=== PATIENT | female | born 1965 | race Caucasian/White ===

== ENCOUNTER 2019-08-19 06:47 | Observation (INO) ==
--- NOTE | 2019-08-06 12:11 | Anesthesiology Consultation ---
Date of Service August 06, 2019 Assessment & Plan (1) Encounter for pre-operative examination: Chart Review Chart Review: Acceptable Risk for Surgery and Patient NOT seen in Pre Admission Testing Consults Requested none History Surgery Operation Date: 08/19/19 08:00 Proposed Procedures p PVC Ablation w/Mapping w/Anesthesia - Katiana Garduno DO Height/Weight Height: 5 ft 5 in Weight: 90.718 kg Allergies Allergy/AdvReac Type Severity Reaction Status Date / Time lisinopril AdvReac Mild Cough Verified 08/04/19 11:25 Medications Home Medications Medication Instructions Recorded Confirmed Last Taken atorvastatin 10 mg PO HS 08/04/19 08/04/19 Unknown dulaglutide [Trulicity] 1.5 mg SUBCUT WK 08/04/19 08/04/19 Unknown gabapentin 100 mg PO HS 08/04/19 08/04/19 Unknown imipramine HCl 50 mg PO HS 08/04/19 08/04/19 Unknown levothyroxine 50 mcg PO QAM 08/04/19 08/04/19 Unknown losartan 25 mg PO HS 08/04/19 08/04/19 Unknown ropinirole 1 mg PO UD 08/04/19 08/04/19 Unknown Past Medical History Medical History Arrhythmia VENTRICULAR TACHYCARDIA AND NEEDS ABLATION Diabetes mellitus, type 2 GERD (gastroesophageal reflux disease) Hyperlipidemia Hypertension Hypothyroidism Seasonal allergies Past Surgical History Surgical History History of arthroscopy of right shoulder Hx of breast biopsy Hx of breast reduction, elective Hx of colonoscopy Hx of hysterectomy Hx of partial thyroidectomy Hx of tonsillectomy Social History Smoking Status: Never smoker Do You Dip or Chew Tobacco: No Hx Alcohol Use: Yes alcohol intake frequency: holidays/special occasions only Hx Substance Use: No substance use type: does not use Testing Laboratory Results 07/30/19 Na 134 K 4.0 Cl 94 CO2 28 BUN 10 Cr 0.7 glucose 320 WBC 11.5 Hgb 14.7 platelet 373 Electrocardiogram Date: 07/21/19 Sinus rhythm and nonsustained VT, rate [address] abnormality
[~2019-08-19 06:47] MED LIST: LR 15ML/HR IV SCH
[2019-08-19] MEDS ORDERED: PROPOFOL IV EMULSION 10 MG/ML 100 ML VIAL IV ONE (07:01)
--- NOTE | 2019-08-19 08:43 | History & Physical Bridge Note ---
Date of Service August 19, 2019 History & Physical Bridge Note I have examined the patient, reviewed the History & Physical and in the interval since the performance of the History & Physical I have noted the following changes of clinical significance: no changes noted
[2019-08-19] MEDS ORDERED: fentaNYL citrate 100 MCG/2 ML VIAL ONE (09:01)
[2019-08-19] MEDS ORDERED: MIDAZOLAM HCL 1 MG/ML 2ML VIAL ONE ×2 (09:02→09:18)
[2019-08-19] MEDS ORDERED: HEPARIN (PORCINE) 1000 UNIT/ML 10 ML (CATH LAB USE ONLY) ONE (09:07)
[2019-08-19] MEDS ORDERED: LIDOCAINE HCL 2% 2 ML VIAL/AMP(20MG/ML) INFIL ONE (09:42)
--- NOTE | 2019-08-19 11:50 | Operative Report ---
Post Operative Report Pre & Post Diagnosis RVOT VT Operation Date: 08/19/19 08:00 <No data on this case meets the specified criteria> I identified the patient and participated in the time-out.: Yes Procedure Operation Date: 08/19/19 08:00 Actual Procedures p EPS + Ablation +3D Map for VT - Katiana Garduno DO Surgeon Katiana Garduno, School Janitor none Estimated Blood Loss 5 Findings Consistent with Post-Op Diagnosis Specimens none Description of Procedure see official report I attest to the content of the Intraoperative Record and any orders documented therein. Any exceptions are noted below.
[2019-08-19] MEDS ORDERED: ACETAMINOPHEN 325 MG TAB PO PRN (11:54)
--- NOTE | 2019-08-19 11:54 | Discharge Summary ---
Date of Service August 20, 2019 Admission HPI Per Admitting Provider pt admitted for elective RVOT VT ablation; Admission Exam Per Admitting Provider aaox3, NAD NC/AT, EOMI Supple No JVD Nrl S1/S2, No murmur, frequent ventricular ectopy and short runs of NSVT CTA b/l no w/r/r soft nt/nd no LE edema b/l skin intact no focal deficits Principal Diagnosis RVOT VT s/p ablation suppressing the PVCs and VT Discharge Exam aaox3, NAD NC/AT, EOMI Supple No JVD Nrl S1/S2, No murmur, occasional PVCs but less then on admission CTA b/l no w/r/r soft nt/nd no LE edema b/l skin intact no focal deficits right groin soft and non-tender Discharge Data Allergies Allergy/AdvReac Type Severity Reaction Status Date / Time lisinopril AdvReac Mild Cough Verified 08/04/19 11:25 Procedures Performed ECG: SR with PVC Operation Date: 08/19/19 08:00 Actual Procedures p EPS + Ablation +3D Map for VT - Katiana Garduno DO Ordered Studies 08/19/19 06:45 EP Lab Images for PACS ONCE Hospital Course (1) 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 Garduno as scheduled in 1 month start toprol 25mg daily-this was escribed to your pharmacy through [facility] Pending Studies at Discharge: No Stand-Alone Forms: My [facility] Medications and DC Order Prescriptions: New metoprolol succinate 25 mg Tablet Extended Release 24 Hr 25 mg PO QAM 30 Days Qty: 30 RF: 0 Continued imipramine HCl 50 mg Tablet 50 mg PO HS RF: 0 ropinirole 1 mg Tablet 1 mg PO UD RF: 0 atorvastatin 10 mg Tablet 10 mg PO HS RF: 0 losartan 25 mg Tablet 25 mg PO HS RF: 0 gabapentin 100 mg Capsule 100 mg PO HS RF: 0 levothyroxine 50 mcg Capsule 50 mcg PO QAM RF: 0 Trulicity 1.5 mg/0.5 mL Pen Injector 1.5 mg SUBCUT WK RF: 0 Admission Data Admit Date/Time: 08/19/19 11:42 Attending Provider: Katiana Garduno Admit Provider: Katiana Garduno Primary Care Provider: Phani Rocha
[2019-08-19] MEDS ORDERED: NON-FORMULARY MEDICATION (Dulaglutide [Trulicity] 1.5 MG) SQ SCH (12:00)
--- NOTE | 2019-08-19 12:34 | Anesthesiology Progress Note ---
Date of Service August 19, 2019 Anesthesia Post Procedure Vital Signs Vital Signs: Temp Pulse Resp BP Pulse Ox 08/19/19 12:20 78 16 128/92 96 08/19/19 12:05 92 H 16 124/86 96 08/19/19 07:04 36.7 C 125 H 16 149/87 H 99 Transfer of Care Handoff Completed per policy Notes Mental Status: alert / awake / arousable Patient Amnestic to Procedure: Yes Nausea / Vomiting: adequately controlled Pain: adequately controlled Airway Patency, RR, SpO2: stable & adequate BP & HR: stable & adequate Hydration State: stable & adequate Anesthetic Complications: no major complications apparent
[2019-08-19] MEDS: METOPROLOL SUCC 25MG EXT REL TAB PO SCH (15:32)
--- NOTE | 2019-08-19 15:35 | Electrocardiogram Report ---
Test Reason : Blood Pressure : / mmHG Vent. Rate : 086 BPM Atrial Rate : 086 BPM P-R Int : 130 ms QRS Dur : 084 ms QT Int : 440 ms P-R-T Axes : 046 029 081 degrees QTc Int : 526 ms Sinus rhythm with frequent , and consecutive Premature ventricular complexes Possible Left atrial enlargement Prolonged QT Abnormal ECG No previous ECGs available Confirmed by Christian Carr ([id number]) on 08/19/2019 3:35:28 PM Referred By: Katiana Garduno Confirmed By:Christian Carr
--- NOTE | 2019-08-19 17:04 | Operative Report ---
DATE OF OPERATION: 08/19/2019 PREOPERATIVE DIAGNOSIS: Right ventricular outflow tract VT. POSTOPERATIVE DIAGNOSIS: Right ventricular outflow tract VT. PROCEDURE: 3D mapping of the PVCs and nonsustained VT within the right ventricular outflow tract along with radiofrequency ablation. SURGEON: Katiana Garduno DO. DECK MATE: None. ANESTHESIA: Monitored anesthetic care administered via Anesthesiology. Please refer to their notes for complete details, but it was a total of 6 mg of Versed, 100 mcg of fentanyl, 1200 mg of propofol. IV FLUIDS: 130 mL of normal saline. BLOOD LOSS: 5 mL. URINE OUTPUT: Not applicable. SPECIMENS: None. FINDINGS: See below. DRAINS: None. INDICATIONS: This is a 54-year-old female who has a past medical history for diabetes, hypertension, hyperlipidemia, obstructive sleep apnea, gastroesophageal reflux disease, hypothyroidism, restless leg syndrome and a family history of premature coronary artery disease with her dad. She was to have a preop EKG for needing shoulder surgery when she was found to have a lot of runs of nonsustained VT. She was referred to EP for right ventricular outflow tract VT and was recommended an ablation. CONSENT: Consent was obtained prior to the patient going into the Electrophysiology Lab. The patient was informed of the risks, benefits and alternative procedure. Risks include but not limited to sudden cardiac , cardiac arrhythmias, cerebrovascular accident, myocardial infarction, injury to the blood vessels, chamber of the heart or the kotlik electrical system where she need a permanent pacemaker, bleeding and infection. The patient understood these risks and agreed to the procedure as planned. Informed consent was obtained. DESCRIPTION OF THE PROCEDURE: The patient was brought into the Electrophysiology Lab in fasting state. She was connected to continuous cardiac monitoring. A timeout was performed to ensure patient identity and procedure correctly. The patient received monitored anesthetic care via Anesthesiology throughout the case for comfort level. [facility] precautions were taken throughout the procedure. The patient was prepped and draped over the bilateral groins. A 10 mL of 1% lidocaine were given in the right femoral groin area. Then using the modified Seldinger technique, femoral venous access was obtained with a needle stick. The guidewire was inserted without any resistance. Then an 8.5-[place] Islander sheath was inserted over the guidewire without any resistance. Guidewire and dilator removed. Then the [employer] catheter was advanced up into the right ventricular outflow tract and 3D mapping of the nonsustained VT and PVCs were obtained. We centralized them to an area on the septal region of the outflow tract, pretty moderately high up in the outflow tract. I then swapped that out for the Biosense DF curve ThermoCool irrigation catheter and continued to do 3D mapping of the PVCs and nonsustained VT to matthew in a little bit more on the septal region there. We found spots with nice unipolar signal of QS as well as up to 30 milliseconds pre-QRS. Unfortunately, I was never able to capturing the issue enough to get adequate pacing to see what my pace maps were, but I started with a series of ablations at 35 michel. Moving a little bit more septal, I suppressed it very quickly. However, when I was in my waiting period about 5-10 minutes later, she started having more the ectopy again. So I went back and I went septal and inferior to the area that I had just went. Again about 5 or 10 minutes later, she would start having few ectopies, little bit less than what she was and usually not more and isolated, not runs. I went a little bit more on the other side of my initial ablation points and there was like a ridge type area that I was pushing against. So, I tried this matthew in and go around this ridge area. I could never completely go right on it because I never had the best catheter stability. Few times I would actually just drag my catheter. Interestingly enough every time I ablated around the ridge, I was able to suppress it and then they would come back in 5 or 10 minutes. When I was somewhat stable with the catheter that ridge and at a pretty moderate force, I realized that there was no ectopy. So I did my best that I could to give some ablations right over that ridge area again at a pretty moderate force, sometimes in the 20 g of force range, so I was only at 30 michel when I did this and often times it was not for very long duration of radiofrequency ablation because of catheter stability and sometimes I just dragged it down. This seemed to suppress a good amount. She now is maybe only having a few isolated PVCs, so I am very optimistic that we did a good amount of suppression. The catheter was then removed. I did place the catheter over the AH area and I was able to record an AH of 80 milliseconds and HV of 50 milliseconds, but because the ablation catheter never really got the best capture, I did not perform any AH. I did not find AV Wenckebach or AV phan ERP or right ventricular ERP. The sheath was then removed and manual compression was used to establish hemostasis. IMPRESSION: Moderately successful RVOT, VT and PVC radiofrequency ablation along with 3D mapping of the right ventricular outflow tract region. PLAN: Monitor the patient overnight, 12-lead ECG. I will start her on low dose metoprolol 25 mg daily. She is not to do any heavy lifting or squatting and I will see her in the office in 1 month's time. I attest to the content of the Intraoperative Record and any orders documented therein. Any exceptions are noted below. MTDD
[2019-08-19] MEDS ORDERED: IMIPRAMINE HCL 50 MG TAB PO SCH (21:00)
[2019-08-19] MEDS ORDERED: ATORVASTATIN 10 MG TAB PO SCH (21:00)
[2019-08-19] MEDS ORDERED: ROPINIROLE HCL 1 MG TABLET PO SCH (21:00)
[2019-08-19] MEDS ORDERED: GABAPENTIN 100 MG CAP PO SCH (21:00)
[2019-08-19] MEDS ORDERED: LOSARTAN POTASSIUM 25 MG TAB PO SCH (21:00)
[2019-08-20] MEDS ORDERED: LEVOTHYROXINE SODIUM 50 MCG TABLET PO SCH (06:30)
[2019-08-20] MEDS: METOPROLOL SUCC 25MG EXT REL TAB PO SCH (07:56)
== END 2019-08-20 10:32 | disposition home or self-care (01) ==
LOC: 2S 06:47 → EP 06:47

== ENCOUNTER 2020-01-27 11:19 | Observation (INO) ==
--- NOTE | 2020-01-16 20:34 | Anesthesiology Consultation ---
Date of Service January 16, 2020 Assessment & Plan (1) Encounter for pre-operative examination: Per nursing phone assessment on 01/13: Travel screen- Lives in [facility]. Traveled to [facility], [place] for shopping (wears mask in public). No known COVID-19 positive contacts. No current COVID-19 related symptoms. No hx of COVID-19 testing. - S/P Left shoulder arthroscopy: Grade view 1 with Glidescope #3, ETT 7.0 at [facility] Chart Review Chart Review: Acceptable Risk for Surgery and Patient NOT seen in Pre Admission Testing History Surgery Operation Date: 01/27/20 13:00 Proposed Procedures p PVC Ablation w/Mapping w/Adithya Garduno, Height/Weight Height: 5 ft 5 in Weight: 94.347 kg Allergies Allergy/AdvReac Type Severity Reaction Status Date / Time lisinopril AdvReac Mild Cough Verified 01/14/20 12:50 Medications Home Medications Medication Instructions Recorded Confirmed Last Taken atorvastatin 10 mg tablet 10 mg PO HS #90 tab 10/02/19 01/14/20 Unknown glimepiride 2 mg tablet 2 mg PO QPM #90 tab 10/02/19 01/14/20 Unknown losartan 25 mg tablet 25 mg PO HS #90 tab 10/02/19 01/14/20 Unknown levothyroxine 50 mcg tablet 50 mcg PO DAILY #90 tab 01/07/20 01/14/20 Unknown ropinirole 1 mg tablet See Rx Instructions PO DAILY #270 01/07/20 01/14/20 Unknown tab semaglutide [Ozempic] 0.5 mg SUBCUT WK 01/15/20 01/15/20 Unknown Past Medical History Medical History (Updated 01/16/20 @ 20:29 by Korina Nicole) Anxiety Atrial fibrillation Cardiomyopathy Diabetes mellitus, type 2 oral + injectable Ejection fraction < 50% difficulty assessing EF d/t hx frequent PVC's/NSVT. s/p cardiac ablation 08/21/19 at [facility]. cardiology monitoring GERD (gastroesophageal reflux disease) Hyperlipidemia Hypertension Hypothyroidism Migraine headache NSVT (nonsustained ventricular tachycardia) s/p cardiac ablation (08/2019)/[facility] Obesity Past Family History Family History Mother Breast cancer Hypertension Father Diabetes Heart disease Past Surgical History Surgical History (Updated 01/16/20 @ 20:30 by Korina Nicole) History of arthroscopy of left shoulder Left shoulder arthroscopy: Grade view 1 with Glidescope #3, ETT 7.0 at [facility] History of arthroscopy of right shoulder History of cardiac radiofrequency ablation 08/2019 - [facility] Hx of breast biopsy Hx of breast reduction, elective Hx of colonoscopy Hx of hysterectomy Hx of partial thyroidectomy Hx of tonsillectomy Past Anesthesia History Difficult Airway (Left shoulder arthroscopy: Grade view 1 with Glidescope #3, ETT 7.0 at [facility]) Social History Smoking Status: Never smoker Do You Dip or Chew Tobacco: No Hx Alcohol Use: Yes alcohol intake frequency: holidays/special occasions only Hx Substance Use: No substance use type: does not use Testing Laboratory Results 09/04/19 WBC 11.5 H/H 14.7/45.7 PLATELETS 373 SODIUM 138 POTASSIUM 4.4 CHLORIDE 100 CO2 27 BUN 13 CREATININE 0.7 GLUCOSE 260 07/30/19 PT 13.3 INR 1.01 Electrocardiogram Date: 09/07/19 NSR at 73bpm. Prolonged QT interval or tu fusion, consider myocardial disease, electrolyte imbalance or drug effects (per anesthesia consult from 09/21/19, this was discussed with Dr. Washington- he does not feel that electrolytes need to be repeated/done prior to surgery from his perspective and recommend leaving it at anesthesiologist discretion AM DOS if electrolytes testing needed. Patient had left shoulder arthroscopy 09/24/19- anesthesiologist decision to not recheck lab. Surgery done without anesthesia complication*) Echocardiogram Date: 12/21/19 LVEF 45%. Frequent PVC during study affects EF assessment. Borderline increased cLV wall thickness. Mild diffuse LV HK. Stress Test Date: 08/21/19 Type: nuclear Type: nuclear Lexiscan nuclear cardiac stress test negative for ischemia. Raw images show breast attenuation. Small area of mild intensity predominantly fixed perfusion uptake in the apex and distal anterior wall worse and resting images suggestive of attenuation artifact. Frequent PVC, difficult to assess accurate EF. LVEF 55% however there are frequent PVCs resulted in gating error. Consider other modality of imaging for assessment of accurate EF. 77% MPHR. Other Testing Cardiac MRI: 08/29/2019: Moderately reduced LV systolic function. Atypical mid wall enhancement noted in the septal gama however there is significant artifact present from the frequent PVCs. Not conclusively evaluate for possible underlying infiltrative process. Can consider repeating cardiac MRI once PVC burden is reduced. LVEF 35%. RV EF 51%.
[~2020-01-27 11:19] MED LIST changes: +GLYCOPYRROLATE 0.2 MG/ML VIAL ONE; +LIDOCAINE HCL 2% 2 ML VIAL/AMP(20MG/ML) INFIL ONE; -LR 15ML/HR IV SCH; +MIDAZOLAM HCL 1 MG/ML 2ML VIAL ONE; +PROPOFOL IV EMULSION 10 MG/ML 100 ML VIAL IV ONE; +fentaNYL citrate 100 MCG/2 ML VIAL ONE
--- NOTE | 2020-01-27 12:07 | History & Physical Report ---
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): History of Present Illness Chief Complaint: +fatigue and SOB Primary Care Provider: Liam Flores DO Pt presents for elective redo PVC ablation Allergies Allergy/AdvReac Type Severity Reaction Status Date / Time lisinopril AdvReac Mild Cough Verified 01/14/20 12:50 Home Medications Home Medications Medication Instructions Recorded Confirmed Type atorvastatin 10 mg tablet 10 mg PO HS #90 tab 10/02/19 01/14/20 Rx glimepiride 2 mg tablet 2 mg PO QPM #90 tab 10/02/19 01/14/20 Rx losartan 25 mg tablet 25 mg PO HS #90 tab 10/02/19 01/14/20 Rx levothyroxine 50 mcg tablet 50 mcg PO DAILY #90 tab 01/07/20 01/14/20 Rx ropinirole 1 mg tablet See Rx Instructions PO DAILY #270 01/07/20 01/14/20 Rx tab semaglutide [Ozempic] 0.5 mg SUBCUT WK 01/15/20 01/15/20 History Past Med/Surg History Medical History Anxiety Atrial fibrillation Cardiomyopathy Diabetes mellitus, type 2 oral + injectable Ejection fraction < 50% difficulty assessing EF d/t hx frequent PVC's/NSVT. s/p cardiac ablation 08/21/19 at [facility]. cardiology monitoring GERD (gastroesophageal reflux disease) Hyperlipidemia Hypertension Hypothyroidism Migraine headache NSVT (nonsustained ventricular tachycardia) s/p cardiac ablation (08/2019)/[facility] Obesity Surgical History History of arthroscopy of left shoulder Left shoulder arthroscopy: Grade view 1 with Glidescope #3, ETT 7.0 at [facility] History of arthroscopy of right shoulder History of cardiac radiofrequency ablation 08/2019 - [facility] Hx of breast biopsy Hx of breast reduction, elective Hx of colonoscopy Hx of hysterectomy Hx of partial thyroidectomy Hx of tonsillectomy Family History Mother Breast cancer Hypertension Father Diabetes Heart disease Social History Preferred Language: Sinhala Communication Ability: Effective Heel Seam Rubber Required: No Beliefs That Will Affect Care: None marital status: Current Living Situation: Spouse current occupational status: employed current occupation: material inspector Feels Safe at Home: Yes Safety Concerns: Feels Safe At This Time Smoking Status: Never smoker Do You Dip or Chew Tobacco: No ; Second Hand Exposure: No ; Hx Alcohol Use: Yes Alcohol Intake Frequency: Rarely Hx Substance Use: No Dental Care, Regularly: Yes Physical Activity Frequency: 1-2 Times per Week Physical Activity Frequency Comment: limited d/t shoulder surgery Review of Systems All systems reviewed & are unremarkable except as noted in HPI & below Physical Exam Physical Exam: aaox3, NAD NC/AT, EOMI Supple No JVD Nrl S1/S2, No murmur, +PVC CTA b/l no w/r/r soft nt/nd no LE edema b/l skin intact no focal deficits Results & Data Vital Signs (Past 12 Hours) Vital Signs Temp Pulse Resp BP Pulse Ox 01/27/20 11:40 36.4 C L 112 H 20 136/93 98
[2020-01-27] MEDS ORDERED: MEPERIDINE HCL 25 MG/ML CARP/VIAL IV PRN (12:51)
[2020-01-27] MEDS ORDERED: MoRPHine SULFATE 10 MG/ML CARP/VIAL IV PRN (12:51)
[2020-01-27] MEDS ORDERED: ePHEDrine sulfate 50 MG/ML AMP IV PRN (12:51)
[2020-01-27] MEDS ORDERED: fentaNYL citrate 100 MCG/2 ML VIAL IV PRN (12:51)
[2020-01-27] MEDS ORDERED: ATROPINE SULFATE 0.1 MG/ML 10ML SYR IV PRN (12:51)
[2020-01-27] MEDS ORDERED: HEPARIN (PORCINE) 1000 UNIT/ML 10 ML (CATH LAB USE ONLY) ONE ×3 (13:10→14:36)
[2020-01-27] MEDS ORDERED: MIDAZOLAM HCL 1 MG/ML 2ML VIAL ONE (14:49)
[2020-01-27] MEDS ORDERED: PROTAMINE SULFATE 10 MG/ML 5 ML VIAL ONE ×2 (15:47→16:59)
--- NOTE | 2020-01-27 16:06 | Operative Report ---
Post Operative Report Pre & Post Diagnosis PVC Operation Date: 01/27/20 13:00 <No data on this case meets the specified criteria> I identified the patient and participated in the time-out.: Yes Procedure Operation Date: 01/27/20 13:00 Actual Procedures p EPS + Ablation +3D Map for VT - Katiana Garduno DO Surgeon Katiana Garduno, Atm Mechanic none Estimated Blood Loss 10 Findings Consistent with Post-Op Diagnosis Specimens none Description of Procedure see official report I attest to the content of the Intraoperative Record and any orders documented therein. Any exceptions are noted below.
[2020-01-27] MEDS ORDERED: ACETAMINOPHEN 325 MG TAB PO PRN (16:10)
--- NOTE | 2020-01-27 16:10 | Discharge Summary ---
Date of Service January 28, 2020 Admission HPI Per Admitting Provider Pt presents for elective redo PVC ablation Admission Exam Per Admitting Provider aaox3, NAD NC/AT, EOMI Supple No JVD Nrl S1/S2, No murmur, +PVC CTA b/l no w/r/r soft nt/nd no LE edema b/l skin intact no focal deficits Principal Diagnosis PVC ablation s/p PVC ablation for LVOT Discharge Exam aaox3, NAD NC/AT, EOMI Supple No JVD Nrl S1/S2, No murmur CTA b/l no w/r/r soft nt/nd no LE edema b/l skin intact no focal deficits right groin soft and no hematoma Discharge Data Allergies Allergy/AdvReac Type Severity Reaction Status Date / Time lisinopril AdvReac Mild Cough Verified 01/14/20 12:50 Procedures Performed Operation Date: 01/27/20 13:00 Actual Procedures p EPS + Ablation +3D Map for VT - Katiana Garduno DO Ordered Studies ECG: SR/ST 01/27/20 06:45 EP Lab Images for PACS ONCE Hospital Course (1) 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): Total Time Total Time Spent Total Time Spent (In Minutes): 40 Total Time Includes: Examination of the Patient, Discharge Planning, Medication Reconciliation and Other Discharge Plan Discharge Items Patient Disposition: Home - Self-Care Reason For Visit: S/P PVC ABLATION WITH RETAINED ARTERIAL SHEATH Discharge Diagnosis: PVC s/p ablation Condition on Discharge: Good Activity: As commented below Activity Comment: no heavy lifting or squating for 1 week Lifting: No more than 10 pounds Bathing: No limitations Sexual Activity: After two weeks Non-emergency contact: [employer] Employee Call non-emergency contact if: you have any medication questions Follow-up/Referrals: Liam Flores DO [Primary Care Provider] - Diet: Heart Healthy Addtl Attending Provider Instructions: f/u with dr garduno in 1 month Pending Studies at Discharge: No Stand-Alone Forms: My [facility] [employer] Medications and DC Order Prescriptions: New metoprolol succinate 25 mg Tablet Extended Release 24 Hr 25 mg PO QAM Qty: 30 RF: 0 Continued levothyroxine 50 mcg tablet 50 mcg PO DAILY Qty: 90 RF: 3 ropinirole 1 mg tablet See Rx Instructions PO DAILY Qty: 270 RF: 0 atorvastatin 10 mg tablet 10 mg PO HS Qty: 90 RF: 1 losartan 25 mg tablet 25 mg PO HS Qty: 90 RF: 3 glimepiride 2 mg tablet 2 mg PO QPM Qty: 90 RF: 0 Ozempic 0.25 mg or 0.5 mg(2 mg/1.5 mL) Pen Injector 0.5 mg SUBCUT WK RF: 0 Discharge Orders: Discharge Order (Routine); Ordered 01/28/20 Ordered By: Katiana Garduno Admission Data Admit Date/Time: 01/27/20 16:16 Attending Provider: Katiana Garduno Admit Provider: Katiana Garduno Primary Care Provider: Liam Flores Other Providers: Katiana Garduno
--- NOTE | 2020-01-27 16:14 | Anesthesiology Progress Note ---
Date of Service January 27, 2020 Anesthesia Post Procedure Vital Signs Vital Signs: Temp Pulse Resp BP Pulse Ox 01/27/20 11:40 36.4 C L 112 H 20 136/93 98 Transfer of Care Handoff Completed per policy Notes Mental Status: alert / awake / arousable and participated in evaluation Nausea / Vomiting: adequately controlled Pain: adequately controlled Airway Patency, RR, SpO2: stable & adequate BP & HR: stable & adequate Hydration State: stable & adequate Anesthetic Complications: no major complications apparent and Pt Satisfied with anesthetic care
[2020-01-27] MEDS ORDERED: NON-FORMULARY MEDICATION (Semaglutide [Ozempic] 0.5 MG) SQ SCH (16:15)
[2020-01-27] MEDS ORDERED: DEXTROSE 5% IV ONE (17:00)
[2020-01-27] MEDS ORDERED: PROTAMINE SULFATE IV ONE (17:00)
[2020-01-27 17:39] LABS: iSTAT Arterial Blood Gas HCO3 25 meg/L (19-24); iSTAT Arterial Blood Gas pCO2 51 mmHg (35-46); iSTAT Arterial Blood Gas pO2 61 mmHg (80-95); iSTAT Carbon Dioxide 27 mmol/L (24-31); iSTAT Hematocrit 36 % (37-47); iSTAT Hemoglobin 12.2 g/dl (12.0-16.0); iSTAT Potassium 3.3 mmol/L (3.3-5.0); iSTAT Sodium 142 mmol/L (135-144)
--- NOTE | 2020-01-27 17:51 | Critical Care Consultation ---
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 Patient is in the ICU for monitoring of ACT and removal of sheath later on. Continue monitoring ACT. Cardiology on board. Pain medication as needed. --Hypothyroidism Continue with levothyroxine --Hypertension Currently blood pressure is controlled Continue with home medications --Restless leg syndrome Patient takes ropinirole as needed nightly --Diabetes type 2 Insulin sliding scale --Dyslipidemia On statin --Prophylaxis VTE: IPC Lines: Right femoral sheath in place. Diet: Cardiac diabetic I have personally spent 33 minutes of critical care time in the direct management of this patient. This is a life/limb threatening event. This includes time spent evaluating patient, direct bedside care, chart review, placing orders, interpretation of diagnostic studies, discussion with consultants, patient, and family members, as well as other required patient management activities. This time is exclusive of all separately billable procedures, and teaching time and separate from and in addition to any other critical care service time. Please note the above document was generated using voice recognition software. It may contain grammatical, syntax or spelling errors. 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 Patient had ablation done in the [facility] but because her ACT was elevated they were not able to remove the sheath which is in the right femoral. At the time of examination patient denies any complaints. She states that she is still feels fuzzy from the sedation. Denies any nausea or vomiting. No headache, no chest pain. No groin pain. No blurry vision. Denies any palpitations. Social history: Non-smoker, no illicit drug use, social alcohol. Pets: None at home. Outside she has cats. No family history of lung cancer. Allergies Allergy/AdvReac Type Severity Reaction Status Date / Time lisinopril AdvReac Mild Cough Verified 01/14/20 12:50 Home Medications Home Medications Medication Instructions Recorded Confirmed Type atorvastatin 10 mg tablet 10 mg PO HS #90 tab 10/02/19 01/14/20 Rx glimepiride 2 mg tablet 2 mg PO QPM #90 tab 10/02/19 01/14/20 Rx losartan 25 mg tablet 25 mg PO HS #90 tab 10/02/19 01/14/20 Rx levothyroxine 50 mcg tablet 50 mcg PO DAILY #90 tab 01/07/20 01/14/20 Rx ropinirole 1 mg tablet See Rx Instructions PO DAILY #270 01/07/20 01/14/20 Rx tab semaglutide [Ozempic] 0.5 mg SUBCUT WK 01/15/20 01/15/20 History metoprolol succinate 25 mg PO QAM #30 tab 01/27/20 Rx Patient History Medical History Anxiety Atrial fibrillation Cardiomyopathy Diabetes mellitus, type 2 oral + injectable Ejection fraction < 50% difficulty assessing EF d/t hx frequent PVC's/NSVT. s/p cardiac ablation 08/21/19 at [facility]. cardiology monitoring GERD (gastroesophageal reflux disease) Hyperlipidemia Hypertension Hypothyroidism Migraine headache NSVT (nonsustained ventricular tachycardia) s/p cardiac ablation (08/2019)/[facility] Obesity Surgical History History of arthroscopy of left shoulder Left shoulder arthroscopy: Grade view 1 with Glidescope #3, ETT 7.0 at [facility] History of arthroscopy of right shoulder History of cardiac radiofrequency ablation 08/2019 - [facility] Hx of breast biopsy Hx of breast reduction, elective Hx of colonoscopy Hx of hysterectomy Hx of partial thyroidectomy Hx of tonsillectomy Family History Mother Breast cancer Hypertension Father Diabetes Heart disease Social History Preferred Language: Greenlandic Communication Ability: Effective 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 Beliefs That Will Affect Care: None marital status: Current Living Situation: Spouse current occupational status: employed current occupation: material handler floorperson Feels Safe at Home: Yes Safety Concerns: Feels Safe At This Time Smoking Status: Never smoker Do You Dip or Chew Tobacco: No ; Second Hand Exposure: No ; Hx Alcohol Use: Yes Alcohol Intake Frequency: Rarely Hx Substance Use: No Dental Care, Regularly: Yes Physical Activity Frequency: 1-2 Times per Week Physical Activity Frequency Comment: limited d/t shoulder surgery Review of Systems Review of Systems: All systems reviewed & are unremarkable except as noted in HPI & below Physical Exam Physical Exam: Constitutional: No acute distress HEENT: EOMI, PERRLA Respiratory system: Good air entry bilaterally, positive mild bilateral lower lobe crackles, no wheeze, no rhonchi CVS: S1-S2 positive, no murmurs or gallops, tachycardia Abdomen: Soft, nontender, nondistended, positive bowel sounds x4, obese Extremities: +2 pulses bilaterally radialis/ dorsalis pedis, no cyanosis, no edema Neuro: Awake alert oriented x3 Psych: Normal mood and affect Skin: no rashes, warm and dry Lymphatic: no cervical or axillary lymphadenopathy Results & Data Results & Data ([facility]) Vital Signs (Past 12 Hours) Vital Signs Temp Pulse Pulse Resp BP BP Pulse Ox 01/27/20 17:25 102 H 18 119/67 97 01/27/20 17:10 36.9 C 105 H 14 114/71 93 01/27/20 16:50 106 H 16 113/75 95 01/27/20 16:35 107 H 16 123/77 95 01/27/20 16:20 106 H 16 121/76 99 01/27/20 16:05 37.3 C 112 H 16 121/76 99 01/27/20 11:40 36.4 C L 112 H 20 136/93 98 Coding Level of Care Code Critical Care 1st 30-74 mins Diagnoses 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
[2020-01-27] MEDS ORDERED: ROPINIROLE HCL 1 MG TABLET PO PRN (18:05)
[2020-01-27] MEDS ORDERED: ATROPINE SULFATE 0.1 MG/ML 10ML SYR IV ONE (19:11)
[2020-01-27 19:29] LABS: BUN Creatinine Ratio 13.5 (10-20); Calcium 8.3 mg/dl (8.5-10.1); Creatinine Clr Calc Pharmacy 110.3 ml/min; Est GFR (African American) 116.3; Est GFR (Non-African American) 100.4; Potassium 3.7 mmol/L (3.5-5.1)
[2020-01-27] MEDS ORDERED: ROPINIROLE HCL 1 MG TABLET PO SCH (21:00)
[2020-01-27] MEDS ORDERED: LOSARTAN POTASSIUM 25 MG TAB PO SCH (21:00)
[2020-01-27] MEDS ORDERED: ATORVASTATIN 10 MG TAB PO SCH (21:00)
[2020-01-27] MEDS ORDERED: GLIMEPIRIDE 2 MG TAB PO SCH (21:00)
[2020-01-28 04:46] LABS: Basophils # (auto) 0.01 K/uL (0-0.2); Basophils % (auto) 0.1 %; Eosinophils # (auto) 0.01 K/uL (0-0.5); Eosinophils % (auto) 0.1 %; Hematocrit (blood only) 37.7 % (37-47); Hemoglobin 12.9 g/dL (12.0-16.0); Immature Granulocytes # (auto) 0.02 K/uL (0.00-0.02); Immature Granulocytes % (auto) 0.2 %; Lymphocytes # (auto) 1.73 K/uL (1.2-3.4); Lymphocytes % (auto) 16.5 %; Mean Corpuscular Hemoglobin 30.9 pg (25-34); Mean Corpuscular Hgb Conc 34.2 g/dL (32-36); Mean Corpuscular Volume 90.2 fL (80-100); Monocytes # (auto) 0.45 K/uL (0.11-0.59); Monocytes % (auto) 4.3 %; Neutrophils # (auto) 8.26 K/uL (1.4-6.5); Neutrophils % (auto) 78.8 %; Platelet Count 257 K/uL (130-400); RDW Coefficient of Variation 12.1 % (11.5-14.5); RDW Standard Deviation 39.7 fL (36.4-46.3); Red Blood Count 4.18 M/uL (4.2-5.4); White Blood Count 10.48 K/uL (4.8-10.8)
[2020-01-28 05:10] LABS: BUN Creatinine Ratio 14.7 (10-20); Calcium 8.3 mg/dl (8.5-10.1); Creatinine Clr Calc Pharmacy 119.2 ml/min; Est GFR (African American) 119.3; Est GFR (Non-African American) 102.9; Magnesium 1.7 mg/dl (1.8-2.4); Phosphorus 3.2 mg/dl (2.5-4.9); Potassium 3.8 mmol/L (3.5-5.1)
[2020-01-28] MEDS: POTASSIUM CHLORIDE 20 MEQ TABCR PO STA ×2 (05:56→06:05)
[2020-01-28] MEDS: MAGNESIUM SULFATE / D5W 1 GM/100 ML BAG IV SCH ×2 (05:57→08:14)
[2020-01-28] MEDS ORDERED: POTASSIUM CHLORIDE / WTR 10 MEQ/100 ML PLCT IV ONE (06:05)
[2020-01-28] MEDS ORDERED: LEVOTHYROXINE SODIUM 50 MCG TABLET PO SCH ×2 (06:30→09:00)
--- NOTE | 2020-01-28 08:13 | Critical Care Progress Note ---
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 Femoral sheath was removed later on the evening of 01/27/2020. H&H stable, patient doing well. Cardiology on board. Pain medication as needed. --Hypothyroidism Continue with levothyroxine --Hypertension Currently blood pressure is controlled Continue with home medications --Restless leg syndrome Patient takes ropinirole as needed nightly --Diabetes type 2 Insulin sliding scale --Dyslipidemia On statin --Prophylaxis VTE: IPC --Hypomagnesemia Being replaced Lines: Peripheral Diet: Cardiac diabetic Plan: Patient is hemodynamically stable. Electrolytes are being replaced. Okay to be downgraded to telemetry floor. I have personally spent 31 minutes of critical care time in the direct management of this patient. This is a life/limb threatening event. This includes time spent evaluating patient, direct bedside care, chart review, placing orders, interpretation of diagnostic studies, discussion with consultants, patient, and family members, as well as other required patient management activities. This time is exclusive of all separately billable procedures, and teaching time and separate from and in addition to any other critical care service time. Please note the above document was generated using voice recognition software. It may contain grammatical, syntax or spelling errors. (2) Hair loss: Admission and Anticipated Discharge Date Admission Date: January 27, 2020 Subjective Patient seen and examined at bedside. No acute distress, no adverse events overnight. Last evening right femoral sheath was removed. Patient denies any chest pain, she did complain of some chest tightness early in the morning. No nausea or vomiting, no palpitation. Tolerating diet. Positive bowel movement. No dizziness, no headache. No leg pain. Review of Systems Review of Systems: All systems reviewed & are unremarkable except as noted in HPI & below Physical Exam Physical Exam: Constitutional: No acute distress HEENT: EOMI, PERRLA Respiratory system: Good air entry bilaterally, positive mild bilateral lower lobe crackles, no wheeze, no rhonchi CVS: S1-S2 positive, no murmurs or gallops Abdomen: Soft, nontender, nondistended, positive bowel sounds x4, obese Extremities: +2 pulses bilaterally radialis/ dorsalis pedis, no cyanosis, no edema, right groin shows no signs of hematoma. Neuro: Awake alert oriented x3 Psych: Normal mood and affect Skin: no rashes, warm and dry Lymphatic: no cervical or axillary lymphadenopathy Results & Data Results & Data ([facility]) Vital Signs (Past 12 Hours) Vital Signs Temp Pulse Pulse Resp BP BP Pulse Ox 01/28/20 07:53 36.8 C 84 18 126/76 97 01/28/20 07:09 36.8 C 88 18 126/76 97 01/28/20 06:09 89 13 132/79 96 01/28/20 05:09 87 15 120/79 97 01/28/20 04:09 36.8 C 84 16 122/67 97 01/28/20 03:09 99 H 19 138/83 96 01/28/20 02:09 89 18 124/74 95 01/28/20 01:09 84 16 130/76 94 01/28/20 00:09 36.5 C 103 H 18 130/75 97 01/28/20 00:00 93 H 01/27/20 23:09 85 18 127/73 99 01/27/20 22:39 86 15 124/73 99 01/27/20 22:24 100 H 16 125/76 97 01/27/20 22:17 95 H 21 124/91 98 01/27/20 22:09 101 H 15 130/78 100 01/27/20 21:54 98 H 16 125/79 98 01/27/20 21:39 92 H 17 123/78 99 01/27/20 21:24 87 19 120/69 98 01/27/20 21:09 36.6 C 84 13 116/70 99 01/27/20 20:54 84 13 128/73 100 01/27/20 20:39 90 13 113/72 91 01/27/20 20:24 91 H 14 120/71 96 01/27/20 20:07 95 H 10 L 120/75 98 01/28/20 04:17 01/28/20 04:17 Coding Level of Care Code Critical Care 1st 30-74 mins Diagnoses 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
[2020-01-28] MEDS ORDERED: METOPROLOL SUCC 25MG EXT REL TAB PO SCH (09:00)
--- NOTE | 2020-01-28 17:08 | Electrocardiogram Report ---
Test Reason : Blood Pressure : / mmHG Vent. Rate : 086 BPM Atrial Rate : 086 BPM P-R Int : 128 ms QRS Dur : 084 ms QT Int : 406 ms P-R-T Axes : 012 024 073 degrees QTc Int : 485 ms Normal sinus rhythm Prolonged QT Abnormal ECG When compared with ECG of 19-AUG-2019 14:09, Premature ventricular complexes are no longer Present Confirmed by Maxi Parr ([id number]) on 01/28/2020 5:08:13 PM Referred By: Katiana Garduno Confirmed By:Eliot Parr
--- NOTE | 2020-02-01 12:31 | Operative Report (OR) ---
DATE OF OPERATION: 01/27/2020 PREOPERATIVE DIAGNOSES: Frequent premature ventricular complexes originating probably from the left ventricular outflow tract and nonischemic cardiomyopathy. POSTOPERATIVE DIAGNOSES: Frequent premature ventricular complexes originating probably from the left ventricular outflow tract and nonischemic cardiomyopathy. PROCEDURES: A 3D mapping of the right ventricular outflow tract and left ventricular outflow tract PVCs along with PVC radiofrequency ablation. SURGEON: Katiana Garduno DO. ASSISTANTS: None. ANESTHESIA: Monitored anesthetic care administered by anesthesiology. Please refer to their notes for complete details, but start time was 1249, end time 1554. Total of 6 mg of Versed, 100 mcg of fentanyl, 500 mg of propofol, 2000 mcg of ketamine. INTRAVENOUS FLUIDS: 1500 mL of lactated Ringer's. ADDITIONAL MEDICINES: 24,000 of heparin. BLOOD LOSS: 5 mL. URINE OUTPUT: Not applicable. SPECIMENS: None. FINDINGS: See below. DRAINS: None. INDICATIONS: This is a 54-year-old female who has a past medical history for frequent PVCs and some nonsustained VT that looked like it was coming from the RVOT VT. She underwent an ablation with me back earlier this year that was partially successful. Ultimately, I think what we did was rechanged the exit point to left ventricular outflow tract area. Additional past medical history of hypertension, hyperlipidemia, diabetes, obstructive sleep apnea, hypothyroidism, gastroesophageal reflux disease, anxiety, restless legs syndrome and nonischemic cardiomyopathy, ejection fraction of 40%, thought to be secondary to PVCs. She did not tolerate sotalol after the RVOT VT ablation, so we recommended due to the recurrent PVCs and the nature of how they changed her morphology as possibly coming from the left ventricular area, we opted to bring her back since she has nonischemic cardiomyopathy to study the left ventricular outflow tract for the PVCs. CONSENT: Consent was obtained prior to the patient going into the electrophysiology lab. The patient was informed of the risks, benefits and alternative procedure. Risks include but not limited to sudden cardiac , cardiac arrhythmias, cerebrovascular accident, myocardial infarction, injury to the blood vessels, chamber of the heart or potentially the [place] electrical system where she would need a permanent pacemaker, bleeding and infection. The patient understood these risks and agreed to proceed as planned. Informed consent was obtained. DESCRIPTION OF THE PROCEDURE: The patient was brought into the electrophysiology lab in a fasting state. She was connected to continuous health consultant. Timeout was performed to ensure patient identity and procedure correctly. The patient was prepped and draped over bilateral groins in normal surgical standard fashion. Walnut precautions were maintained throughout the procedure. Monitored anesthetic care was given throughout the procedure for patient's comfort level. 10 mL of 1% lidocaine-bupivacaine mixture was given in the right femoral groin. Then, access was obtained through a modified Seldinger technique in the following way. An 8-Panamanian sheath was inserted over the right femoral vein and then an 8-Panamanian sheath was inserted in the right femoral artery. Then, ThermoCool 4 mm DF curved [employer] ablation catheter went up through the right femoral artery. Heparin boluses were given throughout the procedure to maintain ACTs greater than 250. 3D mapping of the PVCs was performed in the left ventricular outflow tract. Of note, I also found the left-sided His and that was 3D mapped. The HV was 24 milliseconds. With the 3D mapping of the PVCs and the LVOT on the septal area, we did have some pre-QRSs of up to 30 milliseconds with a nice QS morphology in the unipolars; however, I was never really able to pace and capture to get a good pace maps. I gave some mai at 35 michel, then I opted to move the ablation catheter back into the right ventricle and just remapped the right ventricular outflow tract. The earliest site there was on the septal side right across from where I saw really early sites in the left ventricular outflow tract and the right ventricular outflow tract area did not have any that were pre-QRS, they were at most on time or late, and so I went back to the left side and gave a series of radiofrequency mai right across from where the earliest site was in the RVOT on the septal area of the left ventricular outflow tract and it seemed to suppress all the PVCs. We monitored for 30 minutes without any PVCs were seen, so the catheter was removed from the body. Sheaths were not pulled until ACT was at an acceptable level. She did receive 40 mg of protamine. Once the ACT was down, the sheaths were pulled and manual compression was used to establish hemostasis. IMPRESSION: Successful premature ventricular complex ablation from the left ventricular outflow tract. PLAN: Monitor the patient post-procedure. No heavy lifting or squatting for a week. Stop her sotalol. I will put her on 25 of metoprolol just because of the nonischemic cardiomyopathy and I will see her back in 1 month's time. I attest to the content of the Intraoperative Record and any orders documented therein. Any exception s are noted below.
== END 2020-01-28 09:45 | disposition home or self-care (01) ==
LOC: EP 11:19 → INTOOBSV 16:16 → 1E 16:16